=== PATIENT | male | born 1955 | race Two or more races ===

== ENCOUNTER 2017-08-10 07:48 | Inpatient (IN) | payer BC ==
[~2017-08-10] VITALS: Ht 162.6 cm; Wt 85.9 kg
[2017-08-10] MEDS ORDERED: ATENOLOL/CHLORT1 TAB PO (08:28)
[2017-08-10] MEDS ORDERED: LISINOPRIL40 MG PO (08:28)
[2017-08-10 08:40] LABS: BASOPHIL % 0.3 % (0-2); PLATELET COUNT 170 x10^3mcL (130-400)
[2017-08-10 08:53] LABS: ALT/SGPT 35 U/L (16-63); BILIRUBIN TOTAL 0.98 mg/dL (0.20-1.00); CALCIUM 8.3 mg/dL (8.5-10.1); CREATININE SERUM 0.7 mg/dL (0.7-1.3); GFR1 > 60 mL/min; GLUCOSE SERUM 149 mg/dL (74-106); SODIUM SERUM 142 mmol/L (136-145); TOTAL PROTEIN, SERUM 6.9 g/dL (6.4-8.2)
[2017-08-10 09:02] LABS: RED CELL DISTRIBUTION WIDTH 16.1 % (11.5-14.5)
[2017-08-10 09:06] LABS: POTASSIUM SERUM 2.8 mmol/L (3.5-5.1)
[2017-08-10 09:37] LABS: CARBON DIOXIDE 28 mmol/L (21-32); CHLORIDE SERUM 105 mmol/L (98-107)
[2017-08-10 09:50] LABS: ALKALINE PHOSPHATASE 91 U/L (46-116); AST/SGOT 24 U/L (15-37)
[2017-08-10 10:07] LABS: MAGNESIUM 2.3 mg/dL (1.8-2.4)
[2017-08-10 10:18] LABS: T3 TOTAL 0.98 ng/mL
[2017-08-10 10:19] LABS: FREE T4 1.07 ng/dL (0.76-1.46); FREE THYROXINE INDEX 2.9 ug/dL (1.4-4.5); T4(THYROXINE) 7.4 ug/dL (4.7-13.3)
[2017-08-10 10:46] VITALS: BP 148/103
[2017-08-10] MEDS ORDERED: CHLORTHALIDONE25 MG PO (11:03)
[2017-08-10 12:53] LABS: CALCIUM 8.4 mg/dL (8.5-10.1); CARBON DIOXIDE 30.7 mmol/L (21-32); CHLORIDE SERUM 106 mmol/L (98-107); CREATININE SERUM 0.8 mg/dL (0.7-1.3); GFR1 > 60 mL/min; GLUCOSE SERUM 128 mg/dL (74-106); POTASSIUM SERUM 3.5 mmol/L (3.5-5.1); SODIUM SERUM 144 mmol/L (136-145)
[2017-08-10 13:46] VITALS: BP 137/84
[2017-08-10 14:47] LABS: microscopic required? YES; urine erythrocyte NEGATIVE (NEGATIVE)
[2017-08-10 17:29] LABS: CHOLESTEROL/HDL RATIO 6.5
[2017-08-10 18:07] VITALS: BP 139/92
[2017-08-10 21:11] VITALS: BP 147/96
[2017-08-11] VITALS (13 sets, daily range): BP systolic 122–163; BP diastolic 67–115; Ht 162.6 cm; Wt 85.9 kg
[2017-08-11 06:41] LABS: BASOPHIL % 0.3 % (0-2); PLATELET COUNT 150 x10^3mcL (130-400)
[2017-08-11 06:42] LABS: CALCIUM 8.1 mg/dL (8.5-10.1); CHLORIDE SERUM 107 mmol/L (98-107); CREATININE SERUM 0.8 mg/dL (0.7-1.3); GFR1 > 60 mL/min; GLUCOSE SERUM 129 mg/dL (74-106); MAGNESIUM 2.3 mg/dL (1.8-2.4); PHOSPHOROUS 2.8 mg/dL (2.5-4.9); POTASSIUM SERUM 3.2 mmol/L (3.5-5.1); SODIUM SERUM 145 mmol/L (136-145)
[2017-08-11 06:44] LABS: RED CELL DISTRIBUTION WIDTH 17.1 % (11.5-14.5)
[2017-08-12 05:44] VITALS: BP 147/93
[2017-08-12 07:22] LABS: BASOPHIL % 0.5 % (0-2); PLATELET COUNT 155 x10^3mcL (130-400)
[2017-08-12 07:35] LABS: CALCIUM 8.1 mg/dL (8.5-10.1); CHLORIDE SERUM 105 mmol/L (98-107); CREATININE SERUM 0.7 mg/dL (0.7-1.3); GFR1 > 60 mL/min; GLUCOSE SERUM 111 mg/dL (74-106); MAGNESIUM 2.3 mg/dL (1.8-2.4); PHOSPHOROUS 3.3 mg/dL (2.5-4.9); SODIUM SERUM 142 mmol/L (136-145)
[2017-08-12 07:52] LABS: RED CELL DISTRIBUTION WIDTH 16.6 % (11.5-14.5)
[2017-08-12 08:22] VITALS: BP 139/81
[2017-08-12 13:45] VITALS: BP 141/91
[2017-08-12 18:23] VITALS: BP 147/95
[2017-08-12 20:50] VITALS: BP 150/87
[2017-08-13 05:20] VITALS: BP 135/79
[2017-08-13 07:03] LABS: CALCIUM 8.1 mg/dL (8.5-10.1); CARBON DIOXIDE 27.5 mmol/L (21-32); CHLORIDE SERUM 108 mmol/L (98-107); CREATININE SERUM 0.7 mg/dL (0.7-1.3); GFR1 > 60 mL/min; GLUCOSE SERUM 124 mg/dL (74-106); MAGNESIUM 2.1 mg/dL (1.8-2.4); PHOSPHOROUS 3.1 mg/dL (2.5-4.9); SODIUM SERUM 146 mmol/L (136-145)
[2017-08-13 07:08] LABS: POTASSIUM SERUM 2.7 mmol/L (3.5-5.1)
[2017-08-13 07:19] LABS: BASOPHIL % 0.5 % (0-2); PLATELET COUNT 163 x10^3mcL (130-400)
[2017-08-13 07:20] LABS: RED CELL DISTRIBUTION WIDTH 16.9 % (11.5-14.5)
[2017-08-13 08:55] VITALS: BP 134/70
[2017-08-13 13:14] LABS: CALCIUM 8.3 mg/dL (8.5-10.1); CARBON DIOXIDE 29.2 mmol/L (21-32); CHLORIDE SERUM 106 mmol/L (98-107); CREATININE SERUM 0.8 mg/dL (0.7-1.3); GFR1 > 60 mL/min; GLUCOSE SERUM 124 mg/dL (74-106); POTASSIUM SERUM 3.4 mmol/L (3.5-5.1); SODIUM SERUM 143 mmol/L (136-145)
[2017-08-13 13:36] VITALS: BP 133/81
== END 2017-08-13 14:15 | disposition home or self-care (01) | DRG 286 ==
LOC: ED 07:48 → EDBD 07:48 → DU 09:25
PROVIDERS: Family Medicine; Internal Medicine Interventional Cardiology; Student in an Organized Health Care Education/Training Program
PROC: B2111ZZ Fluoroscopy of Multiple Coronary Arteries using Low Osmolar Contrast (ICD-10-PCS; 2017-08-11)
PROC: B2151ZZ Fluoroscopy of Left Heart using Low Osmolar Contrast (ICD-10-PCS; 2017-08-11)
PROC: 4A023N7 Measurement of Cardiac Sampling and Pressure, Left Heart, Percutaneous Approach (ICD-10-PCS; principal; 2017-08-11 12:30)
DX: I33.0 Acute and subacute infective endocarditis (principal); N17.0 Acute kidney failure with tubular necrosis; E44.1 Mild protein-calorie malnutrition; K21.9 Gastro-esophageal reflux disease without esophagitis; I10 Essential (primary) hypertension; E87.6 Hypokalemia; E66.9 Obesity, unspecified; E11.9 Type 2 diabetes mellitus without complications; F10.20 Alcohol dependence, uncomplicated; Z68.33 Body mass index [BMI] 33.0-33.9, adult; E78.5 Hyperlipidemia, unspecified; Z90.49 Acquired absence of other specified parts of digestive tract
CPT/HCPCS: CLHCL; 76937; 83880; 84439; 85378; C1760; C1769; C1887; C1894; G0480; J0696; J1644; J1885; J2001; J2250; J3010; J3370; J3475; J3480; J3490; J7030; J7040; Q0092; Q9967